=== PATIENT | female | born 1960 | race Hispanic/Latino ===

== ENCOUNTER 2017-02-12 10:52 | Outpatient (RCR) | payer OTHER | END 2017-02-16 | LOC: OT 10:52 | PROVIDERS: ATTEND Orthopaedic Surgery Hand Surgery | DX: S52.571P Other intraarticular fracture of lower end of right radius, subsequent encounter for closed fracture with malunion (principal); M24.831 Other specific joint derangements of right wrist, not elsewhere classified; M25.531 Pain in right wrist; M25.631 Stiffness of right wrist, not elsewhere classified; M24.231 Disorder of ligament, right wrist; R53.1 Weakness ==

== ENCOUNTER 2017-02-26 07:54 | Outpatient (RCR) | payer OTHER | END 2017-03-19 | LOC: OT 07:54 | PROVIDERS: ATTEND Orthopaedic Surgery Hand Surgery | DX: S52.571P Other intraarticular fracture of lower end of right radius, subsequent encounter for closed fracture with malunion (principal); M24.831 Other specific joint derangements of right wrist, not elsewhere classified; M24.231 Disorder of ligament, right wrist | CPT/HCPCS: 97139 ==